=== PATIENT | male | born 1995 | race African-American/Black ===

== ENCOUNTER 2018-05-22 16:13 | Emergency (ER) | payer SELFPAY ==
[2018-05-22] MEDS ORDERED: NORMAL SALINE 1000 ML 1,000 ML IV ONE ×2 (18:01→19:32)
--- NOTE | 2018-05-22 18:02 | ER Document Report ---
ED Medical Screen (RME) - General Chief Complaint: Dizziness Stated Complaint: POSSIBLE DEHYDRATION Time Seen by Provider: 05/22/18 17:59 Mode of Arrival: Wheelchair Information source: Patient Notes: Pt c/o dehydration. Patient was working on the heat and suspects that he was not taking enough oral hydration. Patient states he had nausea and vomiting. Patient reports vomiting 4 times. No diarrhea. Patient states that he was having body cramps but that has improved at this time. hx: none I have greeted and performed a rapid initial assessment of this patient. A comprehensive ED assessment and evaluation of the patient, analysis of test results and completion of the medical decision making process will be conducted by additional ED providers. - Related Data Allergies/Adverse Reactions: No Known Allergies Allergy (Unverified 05/22/18 16:17) Physical Exam - Vital signs Vitals: Temp Pulse Resp BP Pulse Ox 98.5 F 81 16 133/80 H 100 05/22/18 16:32 05/22/18 16:32 05/22/18 16:32 05/22/18 16:32 05/22/18 16:32 - General General appearance: Appears well, Alert In distress: None Course - Vital Signs Vital signs: Temp Pulse Resp BP Pulse Ox 98.5 F 81 16 133/80 H 100 05/22/18 16:32 05/22/18 16:32 05/22/18 16:32 05/22/18 16:32 05/22/18 16:32
[2018-05-22 18:57] LABS: ABSOLUTE BASOPHILS # (AUTO) 0.1 10^3/uL (0.0-0.2); ABSOLUTE EOSINOPHILS # (AUTO) 0.2 10^3/uL (0.0-0.6); ABSOLUTE LYMPHOCYTES (AUTO) 2.4 10^3/uL (0.5-4.7); ABSOLUTE MONOCYTES (AUTO) 0.8 10^3/uL (0.1-1.4); ABSOLUTE NEUT (AUTO) 7.1 10^3/uL (1.7-8.2); BASOPHILS % (AUTO) 0.5 % (0-2); EOSINOPHILS % (AUTO) 2.1 % (0-6); HEMATOCRIT 44.2 % (37.9-51.0); HEMOGLOBIN 14.2 g/dL (13.5-17.0); LYMPHOCYTES % (AUTO) 22.5 % (13-45); MEAN CORPUSCULAR HEMOGLOBIN 24.6 pg (27.0-33.4); MEAN CORPUSCULAR HGB CONC 32.2 g/dL (32.0-36.0); MEAN CORPUSCULAR VOLUME 76 fl (80-97); MONOCYTES % (AUTO) 7.8 % (3-13); PLATELET COUNT 350 10^3/uL (150-450); RED CELL DISTRIBUTION WIDTH 15.2 % (11.5-14.0); SEGMENTED NEUTROPHILS % (AUTO) 67.1 % (42-78); TOTAL CELLS COUNTED % (AUTO) 100 %; WHITE BLOOD COUNT 10.5 10^3/uL (4.0-10.5)
[2018-05-22 19:02] LABS: APPEARANCE,URINE SLIGHTLY-CLOUDY; BILIRUBIN,URINE NEGATIVE (NEGATIVE); COLOR,URINE AMBER; GLUCOSE, URINE NEGATIVE (NEGATIVE); KETONES,URINE 80 mg/dL (NEGATIVE); LEUKOCYTE ESTERASE,URINE NEGATIVE (NEGATIVE); NITRITE,URINE NEGATIVE (NEGATIVE); PROTEIN,URINE NEGATIVE (NEGATIVE); URINE SPECIFIC GRAVITY 1.031
[2018-05-22 19:18] LABS: ALANINE AMINOTRANSFERASE 38 U/L (21-72); ALBUMIN 4.3 g/dL (3.5-5.0); ALKALINE PHOSPHATASE 61 U/L (38-126); ANION GAP 9 (5-19); ASPARTATE AMINO TRANSFERASE 28 U/L (17-59); BILIRUBIN,DIRECT 0.5 mg/dL (0.0-0.4); BILIRUBIN,TOTAL 0.8 mg/dL (0.2-1.3); BLOOD UREA NITROGEN 11 mg/dL (7-20); CALCIUM 9.3 mg/dL (8.4-10.2); CARBON DIOXIDE 24 mmol/L (22-30); CHLORIDE 111 mmol/L (98-107); CREATINE KINASE 337 U/L (55-170); GLUCOSE 74 mg/dL (75-110); POTASSIUM 3.6 mmol/L (3.6-5.0); SODIUM 144.4 mmol/L (137-145); TOTAL PROTEIN 7.3 g/dL (6.3-8.2)
--- NOTE | 2018-05-22 19:50 | ER Document Report ---
ED General - General Chief Complaint: Dizziness Stated Complaint: POSSIBLE DEHYDRATION Time Seen by Provider: 05/22/18 17:59 Mode of Arrival: Wheelchair Notes: Patient is a 23-year-old male who comes emergency department for chief complaint of dehydration, muscle cramping, and 4 episodes of vomiting. He states that he was working out the on power lines and started to feel lightheaded and cramping in his hands, then he started to vomit. He denies syncope. He denies alcohol, he denies any daily medications, he denies any known medical problems. He denies any current symptoms. - Related Data Allergies/Adverse Reactions: No Known Allergies Allergy (Verified 05/22/18 19:10) Past Medical History - General Information source: Patient - Social History Smoking Status: Current Every Day Smoker Frequency of alcohol use: Social Drug Abuse: None Lives with: Family Family History: Reviewed & Not Pertinent Patient has suicidal ideation: No Patient has homicidal ideation: No - Medical History Medical History: Negative Renal/ Medical History: Denies: Hx Peritoneal Dialysis Surgical Hx: Negative - Immunizations Immunizations up to date: Yes Hx Diphtheria, Pertussis, Tetanus Vaccination: Yes Review of Systems - Review of Systems Constitutional: See HPI EENT: No symptoms reported Cardiovascular: See HPI Respiratory: No symptoms reported Gastrointestinal: No symptoms reported Genitourinary: No symptoms reported Male Genitourinary: No symptoms reported Musculoskeletal: No symptoms reported Skin: No symptoms reported Hematologic/Lymphatic: No symptoms reported Neurological/Psychological: No symptoms reported Physical Exam - Vital signs Vitals: Temp Pulse Resp BP Pulse Ox 98.5 F 81 16 133/80 H 100 05/22/18 16:32 05/22/18 16:32 05/22/18 16:32 05/22/18 16:32 05/22/18 16:32 - Notes Notes: GENERAL: Alert, interacts well. No acute distress. HEAD: Normocephalic, atraumatic. EYES: Pupils equal, round, and reactive to light. Extraocular movements intact. ENT: Oral mucosa moist, tongue midline. NECK: Full range of motion. Supple. Trachea midline. LUNGS: Clear to auscultation bilaterally, no wheezes, rales, or rhonchi. No respiratory distress. HEART: Regular rate and rhythm. No murmur ABDOMEN: Soft, non-tender. Non-distended. Bowel sounds present in all 4 quadrants. EXTREMITIES: Moves all 4 extremities spontaneously. No edema, normal radial and dorsalis pedis pulses bilaterally. No cyanosis. BACK: no cervical, thoracic, lumbar midline tenderness. No saddle anesthesia, normal distal neurovascular exam. NEUROLOGICAL: Alert and oriented x3. Normal speech. [cranial nerves II through XII grossly intact]. PSYCH: Normal affect, normal mood. SKIN: Warm, dry, normal turgor. No rashes or lesions noted. Course - Re-evaluation Re-evalutation: CBC unremarkable, chemistry shows mild hypoglycemia, CK is in the 300s. Urine specific gravity is elevated, 80 ketones in the urine. Patient's workup and symptoms are consistent with heat exhaustion and dehydration. Patient is not tachycardic or hypotensive. Patient is very well-appearing on my exam, moist mucous membranes, has been drinking fluids and received IV fluids. He denies any current complaints, states now he feels great. Recommended additional fluids because of his laboratory workup but he declines. He states he is ready to leave. He states he will hydrate at home. Discussed follow-up and return precautions, patient states understanding and agreement. - Vital Signs Vital signs: Temp Pulse Resp BP Pulse Ox 98.1 F 92 16 142/88 H 100 05/22/18 20:18 05/22/18 20:18 05/22/18 20:18 05/22/18 20:18 05/22/18 20:18 - Laboratory Result Diagrams: 05/22/18 18:30 05/22/18 18:30 Laboratory results interpreted by me: 05/22/18 05/22/18 05/22/18 18:30 18:30 18:30 RBC 5.80 H MCV 76 L MCH 24.6 L RDW 15.2 H Chloride 111 H Glucose 74 L Direct Bilirubin 0.5 H Creatine Kinase 337 H Urine Ketones 80 H Urine Urobilinogen 2.0 H Discharge - Discharge Clinical Impression: Dehydration Heat exhaustion Qualifiers: Encounter type: initial encounter Qualified Code(s): T67.5XXA - Heat exhaustion , unspecified, initial encounter Vomiting Qualifiers: Vomiting type: unspecified Vomiting Intractability: non-intractable Nausea presence: unspecified Qualified Code(s): R11.10 - Vomiting, unspecified Condition: Stable Disposition: HOME, SELF-CARE Additional Instructions: Your examination, symptoms, and workup are consistent with heat exhaustion and dehydration. Continue rehydration at home, rest. Follow-up with primary care. Return to the emergency department for any concerning or worsening symptoms including passing out, returned vomiting, inability to urinate, or any other concerning symptoms.
[2018-05-22 20:31] VITALS: BP 142/88
== END 2018-05-22 20:35 | disposition home or self-care (01) ==
LOC: ER 16:13
DX: T67.5XXA Heat exhaustion, unspecified, initial encounter (principal); X30.XXXA Exposure to excessive natural heat, initial encounter; Y93.89 Activity, other specified; E86.0 Dehydration; R11.10 Vomiting, unspecified; E16.2 Hypoglycemia, unspecified; F17.200 Nicotine dependence, unspecified, uncomplicated
CPT/HCPCS: 36415; 80053; 81001; 82550; 85025; 96360; 99284